=== PATIENT | female | born 1945 | race Caucasian/White ===

== ENCOUNTER → 2017-11-24 09:27 | Outpatient (CLI) | payer MEDICARE, OTHER, SELFPAY ==
[2017-11-24 12:21] LABS: ALB/GLOB Ratio 0.9 RATIO (0.9-2.4); AST(SGOT) 26 U/L (15-37); Alanine Aminotransfer ALT/SGPT 27 U/L (13-56); Albumin, Serum 3.6 g/dL (3.2-5.0); Alkaline Phosphatase 99 U/L (45-117); Anion Gap 10 (5-15); BUN 18 mg/dL (7-18); BUN/Creat Ratio 18.5 RATIO (10-20); Calcium,Total 8.9 mg/dL (8.5-10.1); Chloride 107 mmol/L (98-107); Creatinine, Serum 0.97 mg/dL (0.55-1.02); EST Glomerular Filtration Rate 60 mL/min (>60); Est Glom Filt Rate - Afr Amer 72 mL/min (>60); Globulin 3.9 g/dL (2.2-4.2); Glucose 68 mg/dL (74-106); Protein, Total 7.5 g/dL (6.4-8.2); Sodium Level 145 mmol/L (136-145)
== END ==
PROVIDERS: Family Provider Family Medicine; PCP Family Medicine; Visit Provider Family Medicine
DX: I10 Essential (primary) hypertension (principal)
CPT/HCPCS: 36415; 80053

== ENCOUNTER → 2017-12-02 09:37 | Outpatient (CLI) | payer MEDICARE, OTHER, SELFPAY ==
--- NOTE | 2017-12-02 09:49 | BD_ITS ---
STUDY: DUAL ENERGY X-RAY ABSORPTIOMETRY / DXA REASON FOR EXAM: Female, 72 years old. The patient is postmenopausal. TECHNIQUE: Bone Mineral Density (BMD) measurements of lumbar spine and bilateral hips were obtained. COMPARISON: None. FINDINGS: Lumbar Spine (L1-L4): g/cm2 (0.963) / T-score (-2.0) / Z-score (-0.2) Findings are suggestive of osteopenia with a moderate fracture risk. Left Femur Total: g/cm2 (0.827) / T-score (-1.4) / Z-score (0.2) Left Femoral Neck: g/cm2 (0.771) / T-score (-1.9) / Z-score (-0.1) Right Femur Total: g/cm2 (0.780) / T-score (-1.8) / Z-score (-0.2) Right Femoral Neck: g/cm2 (0.709) / T-score (-2.4) / Z-score (-0.5) BD/Dexa Bone Density Study IMPRESSION: The patient is considered osteopenic as outlined below according to World [employer] Organization (WHO) criteria with a moderate fracture risk. Reference Information: The T-score is the number of standard deviations above or below the standard which is normal for young adults at their peak bone mineral density. The World Health Organization (WHO) interprets the T-scores as follows: Above -1 Normal bone density Between -1 and -2.5 Osteopenia Equal to / or below -2.5 Osteoporosis As a practical clinical guideline, osteopenia may be graded as follows: Mild -1 through -1.5 Moderate -1.6 through -2.0 Severe -2.1 through -2.4 The Z-score is the number of standard deviations above or below age-matched controls. A Z-score of less than -1.5 would be considered abnormal. References: 1. NIH Osteoporosis and Related Bone Diseases http://www.osteo.org 2. International Society for Clinical Densitometry http://www.iscd.org 3. National Osteoporosis Foundation http://www.nof.org Electronically Signed: Ubaldo Castle MD at 10:23 EDT Tel [phone], Service support ,
--- NOTE | 2017-12-02 09:49 | BD_ITS ---
STUDY: DUAL ENERGY X-RAY ABSORPTIOMETRY / DXA REASON FOR EXAM: Female, 72 years old. Postmenopausal screening TECHNIQUE: Bone Mineral Density (BMD) measurements of lumbar spine and bilateral hips were obtained. COMPARISON: None. FINDINGS: Lumbar Spine (L1-L4): g/cm2 (0.963) / T-score (-2.0) / Z-score (-0.2) Findings are suggestive of osteopenia with a moderate fracture risk. The scanogram suggests a compression fracture at T12 Left Femur Total: g/cm2 (0.827) / T-score (-1.4) / Z-score (0.2) Left Femoral Neck: g/cm2 (0.771) / T-score (-1.9) / Z-score (-0.1) Right Femur Total: g/cm2 (0.780) / T-score (-1.8) / Z-score (-0.2) Right Femoral Neck: g/cm2 (0.709) / T-score (-2.4) / Z-score (-0.5) BD/Vert Fx Assess/Lat Bone Den IMPRESSION: The patient is considered osteopenic as outlined below according to World [employer] Organization (WHO) criteria with a moderate fracture risk. Reference Information: The T-score is the number of standard deviations above or below the standard which is normal for young adults at their peak bone mineral density. The World Health Organization (WHO) interprets the T-scores as follows: Above -1 Normal bone density Between -1 and -2.5 Osteopenia Equal to / or below -2.5 Osteoporosis As a practical clinical guideline, osteopenia may be graded as follows: Mild -1 through -1.5 Moderate -1.6 through -2.0 Severe -2.1 through -2.4 The Z-score is the number of standard deviations above or below age-matched controls. A Z-score of less than -1.5 would be considered abnormal. References: 1. NIH Osteoporosis and Related Bone Diseases http://www.osteo.org 2. International Society for Clinical Densitometry http://www.iscd.org 3. National Osteoporosis Foundation http://www.nof.org Electronically Signed: Osmany Shipley MD at 8:36 EDT , Service support ,
== END ==
PROVIDERS: Family Provider Family Medicine; PCP Family Medicine; Visit Provider Family Medicine
DX: M81.0 Age-related osteoporosis without current pathological fracture (principal)
CPT/HCPCS: 77080; 77086

== ENCOUNTER → 2018-01-26 11:20 | Outpatient (CLI) | payer MEDICARE, OTHER, SELFPAY ==
--- NOTE | 2018-01-26 14:38 | STRESSREP ---
Stress Test Report Date: 09/25/2017 Procedure: Exercise tolerance test Indications: Atrial fibrillation Consent: Per the patient Procedure: The patient exercised on a Ramez protocol for 6 minutes completing Stage 2 achieving a peak heart rate of 113 bpm (76 % predicted maximal heart rate) with a peak blood pressure 134/68 mmHg and a peak MET capacity of approximately 7 MET's. The baseline ECG demonstrated sinus bradycardia. The peak exercise ECG demonstrated somatic/motion artifact with no obvious ECG changes at the heart rate achieved. [There were no cardiac dysrhythmias pretest, during exercise, or recovery]. The functional capacity was considered average. The patient had no complaint of chest discomfort during exercise or recovery. The examination was discontinued secondary to fatigue. Impression: 1. Technically inadequate (percent predicted maximal heart rate less than 85%) exercise tolerance test 2. Peak exercise ECG with somatic/motion artifact with no obvious ECG changes at the heart rate achieved 3. [There were no cardiac dysrhythmias during exercise or recovery] This note was generated with [employer] software. It may contain incorrect words, spelling, and punctuation that were not noted in checking the note before signing.
== END ==
PROVIDERS: Family Provider Family Medicine; PCP Family Medicine; Referring Provider Internal Medicine Cardiovascular Disease; Visit Provider Internal Medicine Cardiovascular Disease
DX: I48.0 Paroxysmal atrial fibrillation (principal); I48.92 Unspecified atrial flutter
CPT/HCPCS: 93017

== ENCOUNTER → 2018-02-03 09:33 | Outpatient (CLI) | payer MEDICARE, OTHER, SELFPAY ==
--- NOTE | 2018-02-03 09:36 | ECHOD_ITS ---
Reason For Study: Afib/Flutter Procedure This was a 2D Doppler, Color Flow transthoracic echocardiogram. The exam was of adequate technical quality. Exam performed in department. Left Ventricle Normal LV size. Left ventricular systolic function is normal. The estimated ejection fraction is 60 %. Diastolic function is indeterminate. No regional wall motion abnormalities noted. Right Ventricle Normal RV size. Normal systolic function. Atria The left atrium is mildly enlarged. Normal right atrium. No doppler evidence for ASD. Mitral Valve There is no mitral annular calcification. Normal mitral valve. Mild (1+) mitral valve insufficiency. Tricuspid Valve Normal tricuspid valve. Mild tricuspid valve insufficiency. Right ventricular systolic pressure estimated to be 28 mmHg. Aortic Valve Trisinus/trileaflet aortic valve. Normal aortic valve. Pulmonic Valve The pulmonic valve is not well visualized. Great Vessels Normal sized aortic root. Pericardium/Pleural No pericardial effusion. MMode/2D Measurements & Calculations LVIDd: 3.9 cm IVSd: 0.71 cm Ao root diam: 2.9 cm LVIDs: 2.5 cm LVPWd: 0.92 cm LA dimension: 3.0 cm FS: 36.1 % LAV(MOD-bp): 55.1 ml LA A4 area: 17.9 cm2 RA A4 area: 14.1 cm2 LAV(MOD-bp) Indexed: 31.7 ml/m2 LAV(MOD-sp2): 55.9 ml LAV(MOD-sp4): 53.1 ml Time Measurements MV dec time: 0.15 sec Doppler Measurements & Calculations MV E max siddhartha: 84.7 cm/sec MV V2 max: 123.3 cm/sec MV P1/2t max siddhartha: 124.2 cm/sec MV A max siddhartha: 102.5 cm/sec MV max P.1 mmHg MV P1/2t: 60.1 msec MV E/A: 0.83 MV V2 mean: 53.3 cm/sec MV dec slope: 605.1 cm/sec2 MV mean P.4 mmHg MVA(P1/2t): 3.7 cm2 MV V2 VTI: 33.6 cm Ao V2 max: 117.5 cm/sec LV V1 max: 98.7 cm/sec PA V2 max: 65.5 cm/sec Ao max P.5 mmHg LV V1 max P.9 mmHg Ao V2 mean: 75.7 cm/sec LV V1 mean P.7 mmHg Ao mean P.6 mmHg LV V1 mean: 58.7 cm/sec Ao V2 VTI: 30.1 cm LV V1 VTI: 22.8 cm TR max siddhartha: 250.9 cm/sec TR max P.2 mmHg Interpretation Summary Left ventricular systolic function is normal. The estimated ejection fraction is 60 %. The left atrium is mildly enlarged. Mild (1+) mitral valve insufficiency. Mild tricuspid valve insufficiency. Right ventricular systolic pressure estimated to be 28 mmHg. Diastolic function is indeterminate. Ordering Physician: Shaan Langley Referring Physician: Aries Sullivan Performed By: Phi Wilson RCS
== END ==
PROVIDERS: Family Provider Family Medicine; PCP Family Medicine; Referring Provider Internal Medicine Cardiovascular Disease; Visit Provider Internal Medicine Cardiovascular Disease
DX: I48.0 Paroxysmal atrial fibrillation (principal)
CPT/HCPCS: 93306

== ENCOUNTER → 2018-02-09 06:49 | Outpatient (CLI) | payer MEDICARE, OTHER, SELFPAY ==
--- NOTE | 2018-02-09 12:01 | STRESSREP ---
Stress Test Report Date: 10/09/2017 Procedure: Pharmacologic stress nuclear imaging study Indications: Abnormal treadmill stress test; paroxysmal atrial fibrillation Consent: Per the patient Procedure: The patient underwent pharmacologic (Regadenoson) evaluation with a peak heart rate of 88 beats per minute (59 predicted maximal heart rate) and a peak blood pressure of 150/90 mmHg. The baseline ECG demonstrated sinus bradycardia. The peak pharmacologic ECG demonstrated no obvious ECG changes. There were no cardiac dysrhythmias pretest, during pharmacologic infusion, or recovery. There was no complaint of chest discomfort during pharmacologic infusion or recovery. The examination was discontinued secondary to completion of protocol. Impression: 1. Pharmacologic (Regadenoson) evaluation 2. Peak pharmacologic ECG with no obvious ECG changes. 3. There were no cardiac dysrhythmias pretest, during pharmacologic infusion, or recovery. 4. Nuclear images pending Myocardial perfusion imaging study: Technique: The patient was injected with 11.5 millicuries of technetium 99m Cardiolite and subsequently rest SPECT Cardiolite nuclear imaging was obtained in the horizontal long, vertical long, and short axis views. The patient underwent pharmacologic (Regadenoson) evaluation with a peak heart rate of 88 beats per minute (59 % percent predicted maximal heart rate) and a peak blood pressure of 150/90 mmHg. The patient was injected with 33.6 millicuries of technetium 99m Cardiolite and subsequently stress SPECT Cardiolite nuclear imaging was obtained in the horizontal long, vertical long, and short axis views. A gated Cardiolite study at peak stress was obtained. Interpretation: Rest and stress SPECT Cardiolite nuclear imaging status post realignment, normalization, and attenuation correction demonstrate relative uniform tracer uptake and myocardial perfusion appearing within normal limits. There is end systolic thickening and brightening. The gated Cardiolite study demonstrates myocardial thickening and inward wall motion. The reported LVEF is 94 %. Impression: 1. Rest and stress SPECT Cardiolite nuclear imaging demonstrate relative uniform tracer uptake and myocardial perfusion appearing within normal limits. 2. The gated Cardiolite study reports an LVEF of 94 %. This note was generated with [employer] software. It may contain incorrect words, spelling, and punctuation that were not noted in checking the note before signing.
--- OUTSIDE RECORDS SUMMARY | 2018-03-23 19:42 | XMS RPT_ITS ---
:1945 Author Organization OHIP Support Name Relationship Address Phone DANE NELLIE Unavailable [address] + [place] [address] R Unavailable Unavailable Unavailable GOOD, NELLIE Unavailable [address] + [place] [address] R Unavailable Unavailable Unavailable GOOD, NELLIE Unavailable [address] + [place] [address] R Unavailable Unavailable Unavailable GOOD, NELLIE Unavailable [address] + [place] [address] R Unavailable Unavailable Unavailable GOOD, NELLIE Unavailable [address] + [place] [address] R Unavailable Unavailable Unavailable GOOD, NELLIE Unavailable [address] + [place] [address] R Unavailable Unavailable Unavailable GOOD, NELLIE Unavailable [address] + [place] [address] R Unavailable Unavailable Unavailable GOOD, NELLIE Unavailable [address] + [place] [address] R Unavailable Unavailable Unavailable GOOD, NELLIE Unavailable [address] + [place] [address] R Unavailable Unavailable Unavailable GOOD, NELLIE Unavailable [address] + [place] [address] R Unavailable Unavailable Unavailable GOOD, NELLIE Unavailable [address] + [place] [address] R Unavailable Unavailable Unavailable GOOD, NELLIE Unavailable [address] + [place] [address] R Unavailable Unavailable Unavailable GOOD, NELLIE Unavailable [address] + [place] [address] R Unavailable Unavailable Unavailable Care Team Providers Name Role Phone Shaan Langley Attending Unavailable Moodispaw, Shaan Referring Unavailable Brown, Aries Attending Unavailable Brown, Aries Referring Unavailable Brown, Aries Primary Care Unavailable Brown, Aries Attending Unavailable Brown, Aries Referring Unavailable Brown, Aries Primary Care Unavailable Brown, Aries Attending Unavailable Brown, Aries Primary Care Unavailable Moodispaw, Shaan Attending Unavailable Brown, Aries Referring Unavailable Brown, Aries Attending Unavailable Brown, Aries Referring Unavailable Moodispaw, Shaan Attending Unavailable Moodispaw, Shaan Attending Unavailable Brown, Aries Primary Care Unavailable Moodispaw, Shaan Referring Unavailable Moodispaw, Shaan Attending Unavailable Moodispaw, Shaan Referring Unavailable Brown, Aries Primary Care Unavailable Moodispaw, Shaan Attending Unavailable Moodispaw, Shaan Referring Unavailable Brown, Aries Primary Care Unavailable Moodispaw, Shaan Attending Unavailable Moodispaw, Shaan Referring Unavailable Brown, Aries Primary Care Unavailable Moodispaw, Shana Attending Unavailable Moodispaw, Shaan Referring Unavailable Brown, Aries Primary Care Unavailable Moodispaw, Shaan Consulting Unavailable Moodispaw, Shaan Attending Unavailable Moodispaw, Shaan Referring Unavailable PROBLEMS PROBLEMS DATE TYPE CONDITION / CODE ATTENDING STATUS SOURCE 02/26/2018 Unknown R94.39 - Abnormal Shaan Langley Active [place] result of other [facility] function study / Repository R94.39(ICD-10) 02/08/2018 Unknown I48.0 - Paroxysmal MoodShaan flores Active [facility] atrial fibrillation Community / I48.0(ICD-10) Hospital Repository 01/07/2018 Unknown I10 - Essential MoodShaan flores Active [facility] (primary) Community hypertension / Hospital I10(ICD-10) Repository 01/05/2018 Unknown Z23 - Encounter for Aries Sullivan Active [place] immunization / Community Z23(ICD-10) Hospital Repository 12/22/2017 Unknown M81.0 - Age-related Aries Sullivan Active [place] osteoporosis without Community current pathological Hospital fracture / Repository M81.0(ICD-10) PROCEDURES PROCEDURES No Procedure Records FoundRESULTS RESULTS STRESS REPORT Observed: 02/09/2018 Status: F Source: [place] 12:03 PM [facility] REPOSITORY [facility] Cardiovascular Services [address] [place] [address] MR#: [id number] Acct: [id number] Name: JAK VELA Rep #: [id number] : 1945 72 From: Shaan Langley MD Primary Care: Aries Sullivan, DO Status: REG CLI Ordering Dr: Sex: Mukund Reveles Stress Test Report Date: 10/09/2017 Procedure: Pharmacologic stress nuclear imaging study Indications: Abnormal treadmill stress test; paroxysmal atrial fibrillation Consent: Per the patient Procedure: The patient underwent pharmacologic (Regadenoson) evaluation with a peak heart rate of 88 beats per minute (59 predicted maximal heart rate) and a peak blood pressure of 150/90 mmHg. The baseline ECG demonstrated sinus bradycardia. The peak pharmacologic ECG demonstrated no obvious ECG changes. There were no cardiac dysrhythmias pretest, during pharmacologic infusion, or recovery. There was no complaint of chest discomfort during pharmacologic infusion or recovery. The examination was discontinued secondary to completion of protocol. Impression: 1. Pharmacologic (Regadenoson) evaluation 2. Peak pharmacologic ECG with no obvious ECG changes. 3. There were no cardiac dysrhythmias pretest, during pharmacologic infusion, or recovery. 4. Nuclear images pending Myocardial perfusion imaging study: Technique: The patient was injected with 11.5 millicuries of technetium 99m Cardiolite and subsequently rest SPECT Cardiolite nuclear imaging was obtained in the horizontal long, vertical long, and short axis views. The patient underwent pharmacologic (Regadenoson) evaluation with a peak heart rate of 88 beats per minute (59 % percent predicted maximal heart rate) and a peak blood pressure of 150/90 mmHg. The patient was injected with 33.6 millicuries of technetium 99m Cardiolite and subsequently stress SPECT Cardiolite nuclear imaging was obtained in the horizontal long, vertical long, and short axis views. A gated Cardiolite study at peak stress was obtained. Interpretation: Rest and stress SPECT Cardiolite nuclear imaging status post realignment, normalization, and attenuation correction demonstrate relative uniform tracer uptake and myocardial perfusion appearing within normal limits. There is end systolic thickening and brightening. The gated Cardiolite study demonstrates myocardial thickening and inward wall motion. The reported LVEF is 94 %. Impression: 1. Rest and stress SPECT Cardiolite nuclear imaging demonstrate relative uniform tracer uptake and myocardial perfusion appearing within normal limits. 2. The gated Cardiolite study reports an LVEF of 94 %. This note was generated with Dragon dictation software. It may contain incorrect words, spelling, and punctuation that were not noted in checking the note before signing. 02/09/181202 <Electronically signed by Shaan Langley MD> Date Shaan Langley MD CC: Aries Sullivan DO; Shaan Langley MD Date Dictated: 02/09/181200 Date Transcribed: 02/09/181200 Shipping/Receiving Clerk: PM Signed ECHOCARDIOGRAM COMPLETE Observed: 02/08/2018 Status: F Source: [place] 12:38 PM [facility] REPOSITORY [facility] Cardiovascular Services [address] [place] [address] Echo Complete 02/03/18 0944 MR#: [id number] Acct: [id number] Name: JAK VELA Rep #: [id number] : 1945 72 From: Shaan Langlye MD Attending Dr: Shaan Langley MD Status: REG CLI Ordering Dr: Shaan Langley MD Date: 02/03/18 Location: [facility] Sex: F C Admitted: Reason For Study: Afib/Flutter Procedure This was a 2D Doppler, Color Flow transthoracic echocardiogram. The exam was of adequate technical quality. Exam performed in department. Left Ventricle Normal LV size. Left ventricular systolic function is normal. The estimated ejection fraction is 60 %. Diastolic function is indeterminate. No regional wall motion abnormalities noted. Right Ventricle Normal RV size. Normal systolic function. Atria The left atrium is mildly enlarged. Normal right atrium. No doppler evidence for ASD. Mitral Valve There is no mitral annular calcification. Normal mitral valve. Mild (1+) mitral valve insufficiency. Tricuspid Valve Normal tricuspid valve. Mild tricuspid valve insufficiency. Right ventricular systolic pressure estimated to be 28 mmHg. Aortic Valve Trisinus/trileaflet aortic valve. Normal aortic valve. Pulmonic Valve The pulmonic valve is not well visualized. Great Vessels Normal sized aortic root. Pericardium/Pleural No pericardial effusion. MMode/2D Measurements AND Calculations LVIDd: 3.9 cm IVSd: 0.71 cm Ao root diam: 2.9 cm LVIDs: 2.5 cm LVPWd: 0.92 cm LA dimension: 3.0 cm FS: 36.1 % LAV(MOD-bp): 55.1 ml LA A4 area: 17.9 cm2 RA A4 area: 14.1 cm2 LAV(MOD-bp) Indexed: 31.7 ml/m2 LAV(MOD-sp2): 55.9 ml LAV(MOD-sp4): 53.1 ml Time Measurements MV dec time: 0.15 sec Doppler Measurements AND Calculations MV E max siddhartha: 84.7 cm/sec MV V2 max: 123.3 cm/sec MV P1/2t max siddhartha: 124.2 cm/sec MV A max siddhartha: 102.5 cm/sec MV max P.1 mmHg MV P1/2t: 60.1 msec MV E/A: 0.83 MV V2 mean: 53.3 cm/sec MV dec slope: 605.1 cm/sec2 MV mean P.4 mmHg MVA(P1/2t): 3.7 cm2 MV V2 VTI: 33.6 cm Ao V2 max: 117.5 cm/sec LV V1 max: 98.7 cm/sec PA V2 max: 65.5 cm/sec Ao max P.5 mmHg LV V1 max P.9 mmHg Ao V2 mean: 75.7 cm/sec LV V1 mean P.7 mmHg Ao mean P.6 mmHg LV V1 mean: 58.7 cm/sec Ao V2 VTI: 30.1 cm LV V1 VTI: 22.8 cm TR max siddhartha: 250.9 cm/sec TR max P.2 mmHg Interpretation Summary Left ventricular systolic function is normal. The estimated ejection fraction is 60 %. The left atrium is mildly enlarged. Mild (1+) mitral valve insufficiency. Mild tricuspid valve insufficiency. Right ventricular systolic pressure estimated to be 28 mmHg. Diastolic function is indeterminate. Ordering Physician: Shaan Langley Referring Physician: Aries Sullivan Performed By: Phi Wilson RCS 02/08/18 1238 Date Shaan Langley MD CC: Aries Sullivan DO; Shaan Langley MD Date Dictated: 02/03/18 0944 Date Transcribed: 02/08/18 1238 Shipping/Receiving Clerk: Signed STRESS REPORT Observed: 01/26/2018 Status: F Source: [place] 2:40 PM [facility] REPOSITORY [facility] [place] [address] MR#: [id number] Acct: [id number] Name: JAK VELA Rep #: [id number] : 1945 72 From: Shaan Langley MD Primary Care: Aries Sullivan DO Status: REG CLI Ordering Dr: Sex: F C Stress Test Report Date: 09/25/2017 Procedure: Exercise tolerance test Indications: Atrial fibrillation Consent: Per the patient Procedure: The patient exercised on a Ramez protocol for 6 minutes completing Stage 2 achieving a peak heart rate of 113 bpm (76 % predicted maximal heart rate) with a peak blood pressure 134/68 mmHg and a peak MET capacity of approximately 7 MET's. The baseline ECG demonstrated sinus bradycardia. The peak exercise ECG demonstrated somatic/motion artifact with no obvious ECG changes at the heart rate achieved. [There were no cardiac dysrhythmias pretest, during exercise, or recovery]. The functional capacity was considered average. The patient had no complaint of chest discomfort during exercise or recovery. The examination was discontinued secondary to fatigue. Impression: 1. Technically inadequate (percent predicted maximal heart rate less than 85%) exercise tolerance test 2. Peak exercise ECG with somatic/motion artifact with no obvious ECG changes at the heart rate achieved 3. [There were no cardiac dysrhythmias during exercise or recovery] This note was generated with Hingeation software. It may contain incorrect words, spelling, and punctuation that were not noted in checking the note before signing. 01/26/18 1440 <Electronically signed by Shaan Langley MD> Date Shaan Langley MD CC: Aries Sullivan DO; Shaan Langley MD Date Dictated: 01/26/188 Date Transcribed: 01/26/181437 Shipping/Receiving Clerk: PM Signed CARDIOLOGY VISIT Observed: 01/07/2018 Status: F Source: [place] REPORT 3:13 PM [facility] REPOSITORY [facility] [address] [place] [address] OFFICE VISIT Date of Service: 01/07/18 MR#: [id number] Acct: [id number] Name: JAK VELA Rep #: [id number] : 1945 Provider: Shaan Langley MD Age/Sex: 72/F Location: [facility] Status: Signed HPI HPI Details: JAK VELA, is a 72 F who presents to the office today for outpatient cardiovascular consultation to establish outpatient cardiovascular care for concerns of paroxysmal atrial fibrillation. She has previously been followed by the late Dr. Anjel Schwartz. She notes approximately 6 years ago she was evaluated for palpitations. She states she was hospitalized at [facility] in [place], [place]. There she underwent noninvasive evaluation. She was placed on medical management with sotalol/Betapace. She states she has been on it ever since. Her dose is changed over the years. She states she can only tolerate 40 mg total per day. If she has anything more than that she actually feels palpitations. For the most part she states she takes only 20 mg/day or potentially less. She does have palpitations. They do not occur every day. However she believes they may occur more than once a week/month. She has not had near syncope or syncope. She has had no issues with obvious ongoing chest discomfort or difficulty breathing. There is been no orthopnea, PND, or peripheral pitting edema. There has been no other cardiovascular testing performed. It appears on 05/19/2011 she had a transthoracic echocardiogram performed. According to the report her left ventricle was normal with an LVEF of 60-65% with aortic valve sclerosis and decreased diastolic compliance. She also had an exercise tolerance test/nuclear imaging study performed on 05/19/2011. According to the report this was considered abnormal with minimal to mild anterior apical ischemia with a calculated LVEF of 81%. She states she never went on to have diagnostic cardiac catheterization. She states she never had repeat studies. She did have an ECG in the office today. She was noted to have sinus rhythm with a ventricular rate of approximately 61 bpm with no acute ECG changes. She also notes her antihypertensive therapy has been altered. She states she had a dry cough. She was changed from amlodipine therapy to losartan therapy. She still has a dry cough. Intake Vital Signs01/07/18 Height 5 ft 4 in 01/07/18 Weight: 157 lb 01/07/18 Body Mass Index (BMI) 26.9 01/07/18 Blood Pressure 130/82 H Intake Visit Reasons: NEW Pt. \ PFM-Former Dr. Schwartz Pt Allergies No Known Allergies Allergy (Unverified 01/07/18 14:06) Medications losartan 25 mg tablet 25 mg PO DAILY #30 tab 11/18/17 [Rx Confirmed 01/07/18] sotalol 80 mg tablet 40 mg PO DAILY tab 11/18/17 [History Confirmed 01/07/18] calcium carbonate 500 mg calcium (1,250 mg) tablet 500 mg PO DAILY tab 01/07/18 [History Confirmed 01/07/18] vitamins A,C,S-muwx-ingdam 14,320 unit-226 mg-200 unit capsule 1 cap PO BID 01/07/18 [History Confirmed 01/07/18] [facility] Medical History Paroxysmal atrial fibrillation (Chronic) Atrial fibrillation (Chronic) Hypertension (Chronic) Surgical History History of orthopedic surgery (Acute) Family History Brother Parkinsons Heart disease Father Myocardial infarction Mother Myocardial infarction Social History Smoking Status: Never smoker alcohol intake: current alcohol intake frequency: holidays/special occasions only substance use type: does not use what type of physical activity do you participate in: walking frequency: 3-4 times per week ROS Const Const: Negative for fatigue, weakness, weight gain, weight loss, frequent falls or excessive sweating Eyes Eyes: Negative for change in vision, blurry vision or transient loss of vision ENT ENT: Positive for dizziness (occasional woth afib episode); negative for balance problems Cardio Chest Pain: No Palpitations: Yes (occasional) feels like its: irregular Edema: None Muscle aches with walking: None Resp Respiratory: Positive for Cough (dry cough); negative for SOB with activity or SOB at rest GI GI: Negative vomiting or vomiting blood/hematemesis : Negative for hematuria Musc Musc: Positive for muscle aches/ myalgia (occasional generalized); negative for balance problems, muscle weakness or joint pain Skin Skin: Negative non-healing lesions or rash Neuro Neuro: Positive for dizziness (occasional woth afib episode); negative for weakness, blurry vision, lightheadedness, frequent falls or orthostatic symptoms Benson Hematologic/Lymphatic: Negative for easy bleeding Endo Endo: Negative for fatigue or excessive sweating Psych Psych: Negative for anxiety or depression Allergy Allergy/Immunology: Negative for hives, Negative for rash Cardiology Exam Const Appearance: cooperative, healthy appearing, comfortable, no acute distress, well developed and well groomed Nutritional Appearance: average body habitus Orientation: alert, awake and oriented x3 Head Head: normal to inspection, normocephalic and atraumatic Ears: hearing grossly normal bilaterally Nose: external nose normal Face and Sinus: face symmetric Mouth: oral mucosae normal Teeth and gingiva: fair dentition Eyes Eyelids: eyelids normal Pupils: PERRL EOM: EOM intact bilaterally Neck Neck: normal visual inspection and full ROM Carotids: normal carotid upstroke Chest Chest inspection: normal inspection of the chest, symmetric chest movement and normal respiratory effort Auscultation: Bilateral: Clear to Auscultation Cardio Palpation: normal PMI Rate: regular rate Rhythm: regular rhythm Heart sounds: S1 normal and S2 normal GI GI: normal to inspection, bowel sounds present and soft Neuro General: alert, awake and oriented x3 Skin Skin: no rashes or lesions noted Extremities Pulses: Normal: Right Radial Pulse, Left Radial Pulse Lower Extremity Edema: None: Bilateral Psych Psychological: normal affect Assessment AND Plan 1. Paroxysmal atrial fibrillation I48.0 Plan At the present time she has a history of paroxysmal atrial fibrillation. At the moment she appears to be in sinus rhythm. She has been on low-dose sotalol/Betapace therapy. She has not been on antiplatelet or anticoagulant therapy. She still has symptoms. Is unclear whether she is sensing paroxysmal atrial fibrillation or some other form of ectopy or dysrhythmia. At the present time she will continue her current course of action. She will have further evaluation with a 30-day ambulatory event monitor. Hopefully this will clarify her symptoms and give guidance as to further adjust her medications over time with respect to her rate limiting therapy/antiarrhythmic therapy as well as antiplatelet and anticoagulant therapy. Orders Orders: 2. Essential hypertension I10 Plan She does have a history of hypertension. It is unclear whether her cough is related to her antihypertensive therapy. It appears less likely this would be related to her calcium channel antagonist therapy that is on. There is a rare possibility she can still have a dry cough with ARB therapy. At the moment she is continue her medication. If her cough does not improve she may need to be withdrawn from her ARB therapy and have an alternative antihypertensive agent instituted Orders Orders: 3. Abnormal cardiovascular stress test R94.39 Plan She did have an abnormal stress nuclear imaging study. Apparently it was felt at the time that she did not require diagnostic cardiac catheterization. She is gone through no further follow-up noninvasive or invasive studies. At the present time she is going to continue her current course of action. However it was felt reasonable that she be reassessed based upon her known conditions and the abnormal stress test with follow-up noninvasive studies. This will include, based on her atrial dysrhythmia and hypertension, follow-up transthoracic echocardiogram to assess her atrial size as well as her left ventricular wall thickness and overall systolic function. However based upon her previous abnormal stress nuclear imaging study was felt reasonable that she have at minimum a repeat stress test to reassess as to whether or not there is still any concerns of myocardial ischemia versus her previous study potentially being a false positive secondary to soft tissue/breast attenuation. If there are abnormalities then she may need further invasive evaluation care especially being on antiarrhythmic therapy. The above was discussed with her and she was agreeable to this approach Plan Detail Additional Comments Thank you for allowing me to participate in the care of your patient. Please don't hesitate to call if any issues arise. This note was generated using a voice recognition system and there may be incorrect words, spelling or punctuation that were not noted when reviewing the office note prior to saving. Follow Up 3 Months (PFM) Coding Level of Care Code Off vis,new,level 5 Diagnoses Paroxysmal atrial fibrillation I48.0 Essential hypertension I10 Hypertension type: essential hypertension Abnormal cardiovascular stress test R94.39 Coding Level of Care Code Off vis,new,level 5 Diagnoses Paroxysmal atrial fibrillation I48.0 Essential hypertension I10 Hypertension type: essential hypertension Abnormal cardiovascular stress test R94.39 01/07/18 1513 <Electronically signed by Shaan Lagnley MD> Date Shaan Langley MD Cosigner Signature: Date (if applicable) CC: 12 LEAD EKG PERFORMED Observed: 01/07/2018 Status: F Source: [place] BY [place]ADELINE 2:03 PM [facility] REPOSITORY [place] [address] [place] [address] 12 Lead EKG performed by [facility] 01/07/18 140 MR#: [id number] Acct: [id number] Name: JAK VELA Rep #: [id number] : 1945 72 From: Shaan Langley MD Attending Dr: Shaan Langley MD Status: DEP AMB Ordering Dr: Shaan Langley MD Date: 01/07/18 Location: [facility] Sex: F C Admitted: [facility]/12 Lead EKG performed by [facility] ECG Report Interpretation Sinus Rhythm Electronically signed on 01/07/2018 at 17:28 by Shaan Langley Software Version [id number] 01/07/18 1731 Date Shaan Langley MD CC: Date Dictated: 01/07/181401 Date Transcribed: 01/07/181401 Shipping/Receiving Clerk: PM Signed OFFICE VISIT REPORT Observed: 01/05/2018 Status: F Source: [place] 12:51 PM [address] [place] [address] OFFICE VISIT Date of Service: 01/05/18 MR#: [id number] Acct: [id number] Patient: JAK VELA Rep #: [id number] : 1945 Provider: Aries Sullivan DO Age/Sex: 72/F Location: [facility] Status: Signed Intake Intake Visit Reasons: flu shot Chief Complaint: Check up - Est Care, discuss BP meds Allergies No Known Allergies Allergy (Unverified 11/18/17 11:20) Medications amlodipine 2.5 mg tablet 2.5 mg PO DAILY 11/18/17 [History Confirmed 11/18/17] losartan 25 mg tablet 25 mg PO DAILY #30 tab 11/18/17 [Rx Confirmed 11/18/17] sotalol 80 mg tablet 40 mg PO DAILY tab 11/18/17 [History Confirmed 11/18/17] Immunizations Fluad 65yr up(PF)45 mcg(15 mcgx3)/0.5 mL intramuscular syringe Performing Provider: Aries Sullivan DO Administered by: Esther Mcleod on 01/05/18 11:14 Dose Route Admin Location Lot Number Expiration Date NDC Brick Tender 45 mcg IM Right Deltoid [id number] 09/12/18 22349-417-14 SEQIRUS VIS Given Date VIS Publication Date 01/05/18 10/20/14 Eligibility Eligibility Date Assessment AND Plan Orders Orders: Medications Discontinued: Fluad 65yr up(PF)45 mcg(15 mcgx3)/0.5 mL intr45 mcg (0.5 mL) IM ONCE #1 0RF NS Z23 amuscular syringe (flu vac 2017 [id number](PF)) Discontinued Reason: Office Medication has been Doc umented as given Nursing Note Pt presents today for her influenza vaccination. Pt tolerated the injection well and had no complaints afterwards. 01/05/18 1251 <Electronically signed by Aries Sullivan DO> Date Aries Sullivan DO Cosigner Signature: Date (if applicable) CC: VERT FX ASSESS/LAT Observed: 12/22/2017 Status: F Source: [place] BONE DEN 8:50 AM [facility] REPOSITORY [facility] Imaging Services [address] [place] [id number] Vert Fx Assess/Lat Bone Den MR#: [id number] Acct: [id number] Name: JAK VELA Rep #: [id number] : 1945 F 72 From: Santhosh Shipley MD PCP: Aries Sullivan DO Status: REG CLI Study: Vert Fx Assess/Lat Bone Den Date of Exam: 12/02/17 Exam# [id number] Ordering Dr: Aries Sullivan DO STUDY: DUAL ENERGY X-RAY ABSORPTIOMETRY / DXA REASON FOR EXAM: Female, 72 years old. Postmenopausal screening TECHNIQUE: Bone Mineral Density (BMD) measurements of lumbar spine and bilateral hips were obtained. COMPARISON: None. FINDINGS: Lumbar Spine (L1-L4): g/cm2 (0.963) / T-score (-2.0) / Z-score (-0.2) Findings are suggestive of osteopenia with a moderate fracture risk. The scanogram suggests a compression fracture at T12 Left Femur Total: g/cm2 (0.827) / T-score (-1.4) / Z- score (0.2) Left Femoral Neck: g/cm2 (0.771) / T-score (-1.9) / Z- score (-0.1) Right Femur Total: g/cm2 (0.780) / T-score (-1.8) / Z- score (-0.2) Right Femoral Neck: g/cm2 (0.709) / T-score (-2.4) / Z-score (-0.5) BD/Vert Fx Assess/Lat Bone Den IMPRESSION: The patient is considered osteopenic as outlined below according to World [employer] Organization (WHO) criteria with a moderate fracture risk. Reference Information: The T-score is the number of standard deviations above or below the standard which is normal for young adults at their peak bone mineral density. The World Health Organization (WHO) interprets the T-scores as follows: Above -1 Normal bone density Between -1 and -2.5 Osteopenia Equal to / or below -2.5 Osteoporosis As a practical clinical guideline, osteopenia may be graded as follows: Mild -1 through -1.5 Moderate -1.6 through -2.0 Severe -2.1 through -2.4 The Z-score is the number of standard deviations above or below age-matched controls. A Z-score of less than -1.5 would be considered abnormal. References: 1. NIH Osteoporosis and Related Bone Diseases http://www.osteo.org 2. International Society for Clinical Densitometry http://www.iscd.org 3. National Osteoporosis Foundation http://www.nof.org Electronically Signed: Osmany Shipley MD at 8:36 EDT , Service support , CC: Aries Sullivan DO Shipping/Receiving Clerk: Signed DEXA BONE DENSITY Observed: 12/02/2017 Status: F Source: HASLET STUDY 9:41 AM [facility] REPOSITORY [facility] Imaging Services [address] [place] [id number] Dexa Bone Density Study MR#: [id number] Acct: [id number] Name: JAK VELA Rep #: [id number] : 1945 F 72 From: Ubaldo Castle MD PCP: Aries Sullivan DO Status: REG CLI Study: Dexa Bone Density Study Date of Exam: 12/02/17 Exam# [id number] Ordering Dr: Aries Sullivan DO STUDY: DUAL ENERGY X-RAY ABSORPTIOMETRY / DXA REASON FOR EXAM: Female, 72 years old. The patient is postmenopausal. TECHNIQUE: Bone Mineral Density (BMD) measurements of lumbar spine and bilateral hips were obtained. COMPARISON: None. FINDINGS: Lumbar Spine (L1-L4): g/cm2 (0.963) / T-score (-2.0) / Z-score (-0.2) Findings are suggestive of osteopenia with a moderate fracture risk. Left Femur Total: g/cm2 (0.827) / T-score (-1.4) / Z- score (0.2) Left Femoral Neck: g/cm2 (0.771) / T-score (-1.9) / Z- score (-0.1) Right Femur Total: g/cm2 (0.780) / T-score (-1.8) / Z- score (-0.2) Right Femoral Neck: g/cm2 (0.709) / T-score (-2.4) / Z-score (-0.5) BD/Dexa Bone Density Study IMPRESSION: The patient is considered osteopenic as outlined below according to World [place] Organization (WHO) criteria with a moderate fracture risk. Reference Information: The T-score is the number of standard deviations above or below the standard which is normal for young adults at their peak bone mineral density. The World Health Organization (WHO) interprets the T-scores as follows: Above -1 Normal bone density Between -1 and -2.5 Osteopenia Equal to / or below -2.5 Osteoporosis As a practical clinical guideline, osteopenia may be graded as follows: Mild -1 through -1.5 Moderate -1.6 through -2.0 Severe -2.1 through -2.4 The Z-score is the number of standard deviations above or below age-matched controls. A Z-score of less than -1.5 would be considered abnormal. References: 1. NIH Osteoporosis and Related Bone Diseases http://www.osteo.org 2. International Society for Clinical Densitometry http://www.iscd.org 3. National Osteoporosis Foundation http://www.nof.org Electronically Signed: Ubaldo Castle MD at 10:23 EDT Tel [phone], Service support , CC: Aries Sullivan DO Shipping/Receiving Clerk: Signed COMPREHENSIVE METABOLIC Collected: 11/24/2017 Status: F Source: GRISELDA PROFIL 9:33 AM [facility] REPOSITORY TYPE CODE TESTS RESULT OUT OF RANGE REFERENCE UNITS LAB L501.0100 74-106 mg/dL Low GLU 68 Result Comment: Please note revised GLUCOSE reference range effective 2017. LAB L501.1000 7-18 mg/dL Normal BUN 18 LAB L501.1100 0.55-1.02 mg/dL Normal CREAT,SERUM 0.97 Result Comment: The validity of the calculated GFR AND GFRAA in patients over 70 years has not been determined. Clinical correlation is essential. LAB L501.1110 >60 mL/min Normal EST GFR 60 Result Comment: Non- GFR Calc LAB L501.1115 >60 mL/min Normal EST GFR - AA 72 Result Comment: GFR Calc LAB L501.1300 10-20 RATIO Normal BUN/CRE 18.5 LAB L501.1500 6.4-8.2 g/dL T Normal PROT 7.5 LAB L501.1800 3.2-5.0 g/dL Normal ALB 3.6 LAB L501.1950 2.2-4.2 g/dL Normal GLOB 3.9 LAB L501.2000 0.9-2.4 RATIO Normal A/G 0.9 LAB L501.2200 8.5-10.1 mg/dL CA Normal 8.9 LAB L501.4100 15-37 U/L Normal AST 26 LAB L501.4305 45-117 U/L Normal ALK P 99 LAB L501.4405 13-56 U/L Normal ALT 27 LAB L501.4600 0.20-1.00 mg/dL T Normal BILI 0.40 LAB L501.5300 136-145 mmol/L NA Normal 145 LAB L501.5600 3.5-5.1 mmol/L K Normal 4.0 LAB L501.5900 98-107 mmol/L CL Normal 107 LAB L501.6100 21.0-32.0 mmol/L Normal CO2 28.0 LAB L501.6200 5-15 Normal GAP 10 Performed By: #### L500.4050 #### [facility] [address] [place], [address] INTERNAL MEDICINE Observed: 11/18/2017 Status: F Source: HASLET OFFICE VISIT 12:12 PM [facility] REPOSITORY [facility] [address] [place] [address] [place] [address] OFFICE VISIT Date of Service: 11/18/17 MR#: [id number] Acct: [id number] Name: JAK VELA Rep #: [id number] : 1945 Provider: Aries Sullivan DO Age/Sex: 72/F Location: [facility] Status: Signed Intake Vital Signs11/18/17 Height 5 ft 4 in 11/18/17 Weight: 157 lb 11/18/17 Body Mass Index (BMI) 26.9 11/18/17 Blood Pressure 129/74 Intake Visit Reasons: EST CARE Chief Complaint: Check up - Est Care, discuss BP meds Is patient in pain?: No Allergies No Known Allergies Allergy (Unverified 11/18/17 11:20) Medications amlodipine 2.5 mg tablet 2.5 mg PO DAILY 11/18/17 [History Confirmed 11/18/17] losartan 25 mg tablet 25 mg PO DAILY #30 tab 11/18/17 [Rx Confirmed 11/18/17] sotalol 80 mg tablet 40 mg PO DAILY tab 11/18/17 [History Confirmed 11/18/17] PFSH Medical History Paroxysmal atrial fibrillation (Chronic) Atrial fibrillation (Chronic) Hypertension (Chronic) Surgical History History of orthopedic surgery (Acute) Family History Brother Parkinsons Heart disease Father Myocardial infarction Mother Myocardial infarction Social History Smoking Status: Never smoker alcohol intake: current alcohol intake frequency: holidays/special occasions only substance use type: does not use what type of physical activity do you participate in: walking frequency: 3-4 times per week HPI HPI Chief Complaint: Check up - Est Care, discuss BP meds Details: JAK VELA, is a 72 F who presents to the office today for re-evaluation of her blood pressure medications. She has occasional palpatations and feels its due to the amlodipine. ROS Const Constitutional: No chills, fatigue, fever(s), frequent falls, malaise, weakness, sleep problems or change in appetite Eyes Eyes: No blurry vision, change in vision, double vision, discharge or visual disturbances ENT ENT: No abnormal hearing, ear pain, ear pressure, tinnitus or dizziness/vertigo Resp Respiratory: No cough, shortness of breath or wheezing Cardio Cardiology: Positive for palpitations; no chest pain at rest, chest pain with exertion, shortness of breath, dyspnea on exertion, generalized swelling, irregular heart rhythm, lightheadedness, orthopnea or fast heart rate Gastro GI: No abdominal pain, change in bowel habits, constipation, diarrhea, nausea/dyspepsia or vomiting Genitourinary-Female: No difficulty urinating, burning urination, painful urination, urinary incontinence, urinary frequency, urinary urgency, urinary hesitancy, urinary retention, Frequent nighttime urination/ nocturia, sexual problems, genital lesions, abnormal vaginal bleeding, pelvic pain, vaginal dryness, vaginal odor or Vaginal Itching Musc Musculoskeletal: No joint pain, back pain, joint swelling, limited range of motion, muscle weakness, numbness or tingling Skin Skin: No change in skin color, itching, rash or wounds Breast Breast: No breast lump or breast pain Neuro Neurology: No frequent falls, weakness, abnormal hearing, numbness, tingling, unsteady gait/balance, dizziness, loss of vision, memory loss or visual disturbances Psych Psychiatric: No memory loss, No anxiety, No change in appetite, No depression, No Thoughts of harming yourself/Others Endo Endocrine: No fatigue, heat intolerance, increased thirst/drinking, increased hunger or increased urination Aller/Imm Allergy/Immunologic: No wheezing, itchy eyes or seasonal allergy symptoms Benson/Lymp Hematologic/Lymphatic: No easy bleeding, easy bruising or enlarged lymph nodes Exam Const General: cooperative, healthy appearing Nutritional Appearance: average body habitus Orientation: oriented x3 HENMT Ears: hearing grossly normal bilaterally Nose: external nose normal Face and sinus: normal facial exam Neck Neck: no lymphadenopathy Neck mass: No Thyroid: thyroid normal Resp Effort AND Inspection: normal respiratory effort Auscultation: Bilateral: Clear to Auscultation Cardio Rate: bradycardic Rhythm: regular rhythm Musc Musculoskeletal: No muscle weakness Skin General: no rashes or lesions noted Extrem General: no clubbing, cyanosis or edema Psych Mental Status: mental status grossly normal Assessment AND Plan Problems 1. Osteoporosis M81.0 2. Paroxysmal atrial fibrillation I48.0 3. Hypertension I10 Plan This patient was seen for recheck on her blood pressure medication. She is concerned that the amlodipine is causing occasional palpitations. She called the nurse practitioner who is covering for the corporate general manager and she suggested increasing the sotalol but the patient feels very weak when she does this and understandably as at this visit her resting pulse is only 44. I suggested that we switch to losartan at a very low dose because her pressure is actually quite well controlled. I told her definitely she should not increase the sotalol. We also discussed concerns about osteoporosis and that she needs a bone density test to determine where she is that she had a screening at an outpatient facility and suggested this may be a problem. Orders Orders: Medications New: Plan Detail Follow Up 1 Year Coding Level of Care Code Off vis,est,level 4 Diagnoses Osteoporosis M81.0 Paroxysmal atrial fibrillation I48.0 Hypertension I10 11/18/17 1212 <Electronically signed by Aries Sullivan DO> Date Aries Sullivan DO Cosigner Signature: Date (if applicable) CC: ALLERGIES ALLERGIES DATE TYPE / CODE NAME / CODE REACTION SEVERITY SOURCE 01/07/2018 Drug No Known Unknown [facility] Allergy/4160 Allergies/F00 Hospital 55861(SNOMED 2350153(RXNOR Repository CT) M) ENCOUNTERS ENCOUNTERS ADMIT/DISCHARGE ACCOUNT ADMITTING ENCOUNTER LOCATION SOURCE NUMBER CLASS 02/09/2018 [id number] Ambulatory BMSBuilding:W [place] 4 [facility] Repository 02/09/2018 [id number] Ambulatory [place] ing:[facility] Repository 02/03/2018 [id number] Ambulatory Griselda Griselda 6 [facility] ing:[facility] Repository 02/03/2018 [id number] Ambulatory BMSBuilding:B [place] 3 [place].[facility] Repository 02/03/2018 [id number] Ambulatory [place]da [place] 1 [facility] ing:[facility] Repository 01/26/2018 [id number] Ambulatory [place]da [place] 5 [facility] ing:[facility] Repository 01/26/2018 [id number] Ambulatory BMSBuilding:W [place] 2 [facility] Repository 01/07/2018/ [id number] Ambulatory BMSBuilding:B Griselda 8 7 [place].[facility] Repository 01/05/2018/ [id number] Ambulatory BMSBuilding:B [place] 8 8 [facility] 12/24/2017 [id number] Ambulatory BMSBuilding:B [place] 0 [place] [place] 12/02/2017 [id number] Ambulatory [place] Lyn[place] 8 [facility] ing:OPBD Repository 11/24/2017 [id number] Ambulatory [place]don Griselda 1 [facility] ing:[facility] Repository 11/18/2017/ [id number] Ambulatory BMSBuilding:B [place] 8 3 [place] PAYERS PAYERS ENCOUNTER GUARANTOR PAYER SUBSCRIBER SOURCE 02/09/2018 JAK L Primary JAK L GOODDOB: Lyn[place] [id number] GEYERS Insurance:MEDICARE [id number]: [facility] [id number] [place]ository [place] [address]Mzf: Date:2018-01-28 (KH) 02/09/2018 Secondary JAK L GOODDOB: Lyn[place] Insurance:HUMANA [id number] Hospital Number: Repository [id number] Date:6221-51-45KS [address] [address]RH: 02/09/2018 Tertiary NOT GIVENUNK [place]da Insurance:SELF PAY [facility] Number: Effective Repository Date:2018-02-09 02/09/2018 JAK L Primary JAK L GOODDOB: Lyn[place] [id number] GEYERS Insurance:MEDICARE [id number]-Wayne Community Hospital BPolicy Number: [facility] [id number] Repository [place] [address]Vtm: Date:2018-01-28 (NX) 02/09/2018 Secondary JAK L GOODDOB: Griselda Insurance:HUMANA [id number] [facility] City [facility] Hospital Hospital Number: Repository [id number] Date:2446-62-48FT [address] [address]AN: 02/09/2018 Tertiary NOT GIVENUNK [place] Insurance:SELF PAY [facility] Hospital Number: Effective Repository Date:2018-01-28 02/03/2018 JAK L Primary Insurance:SELF NOT GIVENUNK [place] [id number] [place] [facility]Y [facility]: Effective [facility], Date:2018-01-07 [place]ository [place] [address]Kga: () 02/03/2018 JAK L Primary JAK L GOODDOB: Griselda [id number] [place]YERS Insurance:MEDICARE [id number] Hospital - [facility] PART A BPolicy Number: [facility], [id number] Repository [place] [address]Vqa: Date:2018-01-07 () 02/03/2018 Secondary JAK L GOODDOB: Lyndon Insurance:HUMANA [id number] Grove City Methodist Hospital Hospital Number: Repository [id number] Date:9867-96-35XZ [address] [place] [address]KY: 02/03/2018 Tertiary NOT GIVENUNK [place] Insurance:SELF PAY [facility] Number: Effective Repository Date:2018-02-03 02/03/2018 JAK L Primary JAK L GOODDOB: Lyn[place] [id number] [place]YERS Insurance:MEDICARE [id number] Hospital - [facility] PART A BPolicy Number: [facility] [id number] [place]ository [place] [address]Zpq: Date:2018-01-07 () 02/03/2018 Secondary JAK L GOODDOB: Lyndon Insurance:HUMANA [id number] Grove City Methodist Hospital Hospital Number: Repository [id number] Date:5351-28-56ID [address] [place] [address]PE: 02/03/2018 Tertiary NOT GIVENUNK [place] Insurance:SELF PAY [facility] Hospital Number: Effective Repository Date:2018-01-07 01/26/2018 JAK L Primary JAK L GOODDOB: Lyn[place] [id number] [place]ERS Insurance:MEDICARE [id number] Hospital - [facility] PART A BPolicy Number: [facility] [id number] Repository [place] [address]Gjf: Date:2018-01-13 () 01/26/2018 Secondary JAK L GOODDOB: Griselda Insurance:HUMANA [id number] Grove City Methodist Hospital Hospital Number: Repository [id number] Date:2347-84-41HD [address] [place] [address]PT: 01/26/2018 Tertiary NOT GIVENUNK [place] Insurance:SELF PAY [facility] Hospital Number: Effective Repository Date:2018-01-13 01/26/2018 JAK L Primary JAK L GOODDOB: Gr[place]da [id number] [place]YERS Insurance:MEDICARE [id number] Hospital - [facility] PART A BPolicy Number: [facility], [id number] [place]ository [place] [address]Crd: Date:2018-01-13 () 01/26/2018 Secondary JAK L GOODDOB: Griselda Insurance:HUMANA [id number] Grove City [facility] Hospital Hospital Number: Repository [id number] Date:3888-58-88DP [address] [place] [address]OA: 01/26/2018 Tertiary NOT GIVENUNK [place] Insurance:SELF PAY [facility] Hospital Number: Effective Repository Date:2018-01-26 01/07/2018 JAK L Primary JAK L GOODDOB: Griselda [id number] [place] Insurance:MEDICARE [id number] Hospital - [facility] PART A BPolicy Number: [facility], [id number] Repository [place] [address]Pcm: Date:2017-12-04 () 01/07/2018 Secondary JAK L GOODDOB: Griselda Insurance:HUMANA [id number] Grove City Methodist Hospital Hospital Number: Repository [id number] Date:7337-11-84TP [address] [address]SR: 01/07/2018 Tertiary NOT GIVENUNK [place] Insurance:SELF PAY [facility] Hospital Number: Effective Repository Date:2018-01-07 01/05/2018 JAK L Primary JAK L GOODDOB: Gr[place]da [id number] [place] Insurance:MEDICARE [id number] Hospital - [facility] PART A BPolicy Number: [facility] JESSYTRICIA, [id number] Repository [place] [address]Ska: Date:2018-01-04 () 01/05/2018 Secondary JAK L GOODDOB: Lyn[place] Insurance:HUMANA [id number] Grove City Methodist Hospital Hospital Number: Repository [id number] Date:0860-47-14KE [address] [place] [address]QJ: 01/05/2018 Tertiary NOT GIVENUNK Lyn[place] Insurance:SELF PAY [facility] Hospital Number: Effective Repository Date:2018-01-05 12/24/2017 JAK L Primary JAK L GOODDOB: Griselda [id number] [place]YERS Insurance:MEDICARE [id number] Hospital - [facility] PART A BPolicy Number: [facility] [id number] Repository [place] [address]Tib: Date:2017-11-23 () 12/24/2017 Secondary JAK L GOODDOB: Lyn[place] Insurance:HUMANA [id number] Grove City Methodist Hospital Hospital Number: Repository [id number] Date:2859-40-30UD [address] [address]GL: 12/24/2017 Tertiary NOT GIVENUNK [place] Insurance:SELF PAY [facility] Hospital Number: Effective Repository Date:2017-11-23 12/02/2017 JAK L Primary JAK L GOODDOB: Griselda [id number] [place] Insurance:MEDICARE [id number] Hospital - [place] PART A BPolicy Number: [facility]ETRIHEALTH [facility], [id number] Repository [place] [address]Kvb: Date:2017-11-18 () 12/02/2017 Secondary JAK L GOODDOB: Lyndon Insurance:HUMANA [id number] Grove City Methodist Hospital Hospital Number: Repository [id number] Date:1803-07-89LF [address] [address]AO: 12/02/2017 Tertiary NOT GIVENUNK Lyn[place] Insurance:SELF PAY [facility] Hospital Number: Effective Repository Date:2017-11-18 11/24/2017 JAK L Primary JAK L GOODDOB: Lyn[place] [id number] [place] Insurance:MEDICARE [id number] [facility] PART A BPolicy Number: [facility] [id number] Repository [place] [address]Jre: Date:2017-11-24 () 11/24/2017 Secondary JAK L GOODDOB: Griselda Insurance:HUMANA [id number] Grove City Methodist Hospital Hospital Number: Repository [id number] Date:1449-47-60ZW [address] [address]MG: 11/24/2017 Tertiary NOT GIVENUNK [place] Insurance:SELF PAY [facility] Hospital Number: Effective Repository Date:2017-11-24 11/18/2017 JAK L Primary JAK L GOODDOB: Lyndon [id number] [place]ERS Insurance:MEDICARE [id number] Hospital - [facility] PART A BPolicy Number: [facility] [id number] [place]ository [place] [address]Yhr: Date:2017-09-22 (BP) 11/18/2017 Secondary JAK L GOODDOB: Lyn[place] Insurance:HUMANA [id number] Grove City Methodist Hospital Hospital Number: Repository [id number] Date:1158-13-29SZ [address] [address]PK: 11/18/2017 Tertiary NOT GIVENUNK [place]da Insurance:SELF PAY [facility] Hospital Number: Effective Repository Date:2017-11-18
== END ==
PROVIDERS: Family Provider Family Medicine; PCP Family Medicine; Referring Provider Internal Medicine Cardiovascular Disease; Visit Provider Internal Medicine Cardiovascular Disease
DX: R94.39 Abnormal result of other cardiovascular function study (principal); I48.0 Paroxysmal atrial fibrillation
CPT/HCPCS: 78452; 93017; A9500; A4216; J2785

== ENCOUNTER → 2018-12-20 | Outpatient (CLI) | payer MEDICARE, OTHER, SELFPAY ==
[2018-12-16 13:40] VITALS: BMI 26.4
[2018-12-20 10:54] LABS: Cholesterol 244 mg/dL (200); High Density Lipoprotein 56 mg/dL; Triglycerides 145 mg/dL; Very Low Density Lipoprotein 29 mg/dL (5-40)
== END | disposition home or self-care (01) ==
LOC: BIMLAB 08:53
PROVIDERS: Family Provider Family Medicine; PCP Family Medicine; Visit Provider Family Medicine
DX: I48.91 Unspecified atrial fibrillation (principal); I10 Essential (primary) hypertension
CPT/HCPCS: 36415; 80061; 86900; 86901

== ENCOUNTER → 2020-08-03 08:09 | Outpatient (CLI) | payer MEDICARE, OTHER, SELFPAY ==
[2020-07-30 14:34] VITALS: BMI 26.2
[2020-08-03 12:47] LABS: AST(SGOT) 24 U/L (15-37); Alanine Aminotransfer ALT/SGPT 24 U/L (13-56); Albumin, Serum 3.5 g/dL (3.2-5.0); Alkaline Phosphatase 90 U/L (45-117); Bilirubin, Direct 0.11 mg/dL (0.00-0.30); Cholesterol 260 mg/dL (200); Globulin 3.6 g/dL (2.2-4.2); High Density Lipoprotein 59 mg/dL; Protein, Total 7.1 g/dL (6.4-8.2); Triglycerides 119 mg/dL; Very Low Density Lipoprotein 24 mg/dL (5-40)
== END ==
PROVIDERS: PCP Family Medicine; Referring Provider Internal Medicine Cardiovascular Disease; Visit Provider Internal Medicine Cardiovascular Disease
DX: E78.00 Pure hypercholesterolemia, unspecified (principal)
CPT/HCPCS: 36415; 80061; 80076

== ENCOUNTER → 2021-12-03 | Outpatient (CLI) | payer MEDICARE, OTHER, SELFPAY ==
[2021-12-03 12:35] LABS: AST(SGOT) 26 U/L (15-37); Alanine Aminotransfer ALT/SGPT 22 U/L (13-56); Albumin, Serum 3.5 g/dL (3.2-5.0); Alkaline Phosphatase 78 U/L (45-117); Bilirubin, Direct 0.12 mg/dL (0.00-0.30); Cholesterol 250 mg/dL (200); Globulin 3.8 g/dL (2.2-4.2); High Density Lipoprotein 54 mg/dL; Protein, Total 7.3 g/dL (6.4-8.2); Triglycerides 132 mg/dL; Very Low Density Lipoprotein 26 mg/dL (5-40)
== END | disposition home or self-care (01) ==
LOC: BIMLAB 08:32
PROVIDERS: PCP Family Medicine; Visit Provider Internal Medicine Cardiovascular Disease
DX: E78.00 Pure hypercholesterolemia, unspecified (principal)
CPT/HCPCS: 36415; 80061; 80076

== ENCOUNTER → 2022-07-17 | Outpatient (CLI) | payer MEDICARE, OTHER, SELFPAY ==
[2022-07-17 11:43] LABS: AST(SGOT) 25 U/L (15-37); Alanine Aminotransfer ALT/SGPT 22 U/L (13-56); Albumin, Serum 3.5 g/dL (3.2-5.0); Alkaline Phosphatase 87 U/L (45-117); Cholesterol 265 mg/dL (200); Globulin 3.9 g/dL (2.2-4.2); High Density Lipoprotein 55 mg/dL; Protein, Total 7.4 g/dL (6.4-8.2); Triglycerides 203 mg/dL; Very Low Density Lipoprotein 41 mg/dL (5-40)
== END | disposition home or self-care (01) ==
LOC: LAB 10:59
PROVIDERS: Internal Medicine Cardiovascular Disease; PCP Family Medicine; Referring Provider Internal Medicine Cardiovascular Disease; Visit Provider Internal Medicine Cardiovascular Disease
DX: E78.5 Hyperlipidemia, unspecified (principal)
CPT/HCPCS: 36415; 80061; 80076

== ENCOUNTER → 2023-01-15 | Outpatient (CLI) | payer MEDICARE, OTHER, SELFPAY ==
[2023-01-15 11:02] LABS: AST(SGOT) 23 U/L (15-37); Alanine Aminotransfer ALT/SGPT 25 U/L (13-56); Albumin, Serum 3.5 g/dL (3.2-5.0); Alkaline Phosphatase 83 U/L (45-117); Cholesterol 235 mg/dL (200); Globulin 3.7 g/dL (2.2-4.2); High Density Lipoprotein 60 mg/dL; Protein, Total 7.2 g/dL (6.4-8.2); Triglycerides 95 mg/dL; Very Low Density Lipoprotein 19 mg/dL (5-40)
== END | disposition home or self-care (01) ==
LOC: LAB 08:43
PROVIDERS: PCP Family Medicine; Referring Provider Physician Assistant Medical; Visit Provider Physician Assistant Medical
DX: E78.00 Pure hypercholesterolemia, unspecified (principal)
CPT/HCPCS: 36415; 80061; 80076

== ENCOUNTER → 2024-04-19 | Outpatient (CLI) | payer MEDICARE, OTHER, SELFPAY ==
[2024-04-19 15:20] LABS: Absolute Lymphocyte Count 1.75 X10^3/uL (0.83-4.51); Absolute Neutrophil Count 3.3 X10^3/uL (2.0-7.7); Basophil# 0.07 X10^3/uL; Basophil% 1.2 % (0-1); Eosinophil# 0.13 X10^3/uL; Eosinophils% 2.3 % (0-5); Hematocrit 38.5 % (37-47); Hemoglobin 12.7 g/dL (12.0-15.0); Lymphocyte # 1.75 X10^3/ul (0.83-4.51); Lymphocyte % 30.4 % (19-41); Mean Corpuscular Hgb 31.1 pg (27.0-32.0); Mean Corpuscular Volume 94.1 fL (81-99); Mean Platelet Vol. 9.6 fl (6.2-12.0); Monocyte% 8.7 % (0-10); NRBC Flagged by Analyzer 0 % (0-5); Neutrophil % 57.2 % (47-70); Platelet Count 306 K/mm3 (150-450); Red Blood Count 4.09 M/mm3 (4.2-5.4); White Blood Count 5.8 K/mm3 (4.4-11.0)
[2024-04-19 16:51] LABS: ALB/GLOB Ratio 0.9 RATIO (0.9-2.4); AST(SGOT) 25 U/L (15-37); Alanine Aminotransfer ALT/SGPT 22 U/L (13-56); Albumin, Serum 3.7 g/dL (3.2-5.0); Alkaline Phosphatase 72 U/L (45-117); Anion Gap 7 (5-15); BUN 23 mg/dL (7-18); BUN/Creat Ratio 22.5 RATIO (10-20); Calcium,Total 9.3 mg/dL (8.5-10.1); Chloride 105 mmol/L (98-107); Cholesterol 260 mg/dL (200); Creatinine, Serum 1.02 mg/dL (0.55-1.02); EST Glomerular Filtration Rate 55 mL/min (>60); Est Glom Filt Rate - Afr Amer 67 mL/min (>60); Glucose 85 mg/dL (74-106); High Density Lipoprotein 57 mg/dL; Protein, Total 7.7 g/dL (6.4-8.2); Sodium Level 138 mmol/L (136-145); Triglycerides 159 mg/dL; Very Low Density Lipoprotein 32 mg/dL (5-40)
== END | disposition home or self-care (01) ==
LOC: BIMLAB 14:23
PROVIDERS: PCP Family Medicine; Visit Provider Family Medicine
DX: I10 Essential (primary) hypertension (principal); E78.5 Hyperlipidemia, unspecified
CPT/HCPCS: 36415; 80053; 80061; 85025

== ENCOUNTER → 2024-05-31 | Outpatient (CLI) | payer MEDICARE, OTHER, SELFPAY ==
--- NOTE | 2024-05-31 09:21 | BD_ITS ---
PROCEDURE: DEXA BONE DENSITY STUDY 05/31/2024 REASON FOR EXAM: OSTEOPOROSIS F, age 79 y/o . TECHNIQUE: DEXA scan of the lumbar spine and both hips. COMPARISON: 12/02/2017 FINDINGS: T-SCORES Lumbar spine: -1.7 (BMD 0.857); Previously: -1.7 Left hip: -1.6 (BMD 0.749); Previously: -1.4 Right hip: -1.8 (BMD 0.720); Previously: -1.8 Right hip FRAX* Results: 10 Year Probability of Fracture: Hip Fracture(1): 24% Major Osteoporotic Fracture(2): 35% Left hip FRAX* Results: 10 Year Probability of Fracture: Hip Fracture(1): 21% Major Osteoporotic Fracture(2): 32% *FRAX is a trademark of the [employer]'s [place] for Metabolic Bone Disease, World Health Organization (WHO) Collaborating [place]. 1-The 10-year probability of fracture may be lower than reported if the patient has received treatment. 2-Major Osteoporotic Fracture: Clinical Spine, Forearm, Hip or Shoulder. The T-scores are also available for review on the [facility] PACS or by accessing the [facility] electronic medical record. BD/Dexa Bone Density Study IMPRESSION: Osteopenia of the lumbar spine and both hips. Reading Location: ALEXANDROJACKYWILLY
== END | disposition home or self-care (01) ==
LOC: OPBD 09:16
PROVIDERS: PCP Family Medicine; Referring Provider Family Medicine; Visit Provider Family Medicine
DX: M81.0 Age-related osteoporosis without current pathological fracture (principal)
CPT/HCPCS: 77080